=== PATIENT | female | born 1965 | race Caucasian/White ===

== ENCOUNTER 2020-11-11 07:52 | Outpatient (RCR) | payer BC, SELFPAY | END 2020-11-30 15:35 | disposition home or self-care (01) | LOC: HO.WCC 07:52 | PROVIDERS: Visit Provider Physician Assistant | DX: L97.321 Non-pressure chronic ulcer of left ankle limited to breakdown of skin (principal); L97.211 Non-pressure chronic ulcer of right calf limited to breakdown of skin; I10 Essential (primary) hypertension; I73.9 Peripheral vascular disease, unspecified; I87.2 Venous insufficiency (chronic) (peripheral) | CPT/HCPCS: 99212; 99214 ==

== ENCOUNTER 2024-10-13 13:44 | Outpatient (REF) | payer BC, SELFPAY ==
--- NOTE | ~2024-10-13 | US_ITS ---
Procedure: Endovascular ablation of the left anterior accessory saphenous vein with STS HISTORY: Varicose veins INDICATIONS: Symptomatic varicose veins of left lower extremity. Symptoms include ulceration of left lower extremity PROCEDURE/FINDINGS: Informed consent was obtained following a discussion of the risks and benefits of the procedure with the patient. The patient was placed supine on the ultrasound procedure table. Preliminary ultrasound demonstrates a dilated refluxing left anterior accessory saphenous vein.A site was marked on the left anterolateral leg . The left leg was sterilely prepped and draped. Under direct ultrasound guidance with permanent recordings, a 23-gauge butterfly needle was used to access the left anterior accessory saphenous vein. At this time, the STS solution was mixed utilizing the Tessari method of a 1:4 ratio with room air. During administration, manual dispersion of the injectate was performed with continuous compression of the junction. The delivery device was removed and hemostasis was achieved with manual compression. Postprocedure ultrasound demonstrates successful occlusion of the treated vein with widely patent and compressible saphenofemoral junction. Patient tolerated the procedure well without immediate complication. US/US guide needle placement IMPRESSION: Successful endovenous ablation of the left anterior accessory saphenous vein. Follow-up ultrasound in 5-7 days This procedure was performed by Rad Rodriguez NP and supervised by Antelmo Bermudez MD. Electronically signed by: Brett Bermudez MD 10/21/2024 05:51 PM EDT
--- NOTE | ~2024-10-13 | US_ITS ---
Procedure: Endovascular ablation of the left anterior accessory saphenous vein with STS HISTORY: Varicose veins INDICATIONS: Symptomatic varicose veins of left lower extremity. Symptoms include ulceration of left lower extremity PROCEDURE/FINDINGS: Informed consent was obtained following a discussion of the risks and benefits of the procedure with the patient. The patient was placed supine on the ultrasound procedure table. Preliminary ultrasound demonstrates a dilated refluxing left anterior accessory saphenous vein.A site was marked on the left anterolateral leg . The left leg was sterilely prepped and draped. Under direct ultrasound guidance with permanent recordings, a 23-gauge butterfly needle was used to access the left anterior accessory saphenous vein. At this time, the STS solution was mixed utilizing the Tessari method of a 1:4 ratio with room air. During administration, manual dispersion of the injectate was performed with continuous compression of the junction. The delivery device was removed and hemostasis was achieved with manual compression. Postprocedure ultrasound demonstrates successful occlusion of the treated vein with widely patent and compressible saphenofemoral junction. Patient tolerated the procedure well without immediate complication. US/US Vein Inj Sclerosant Single IMPRESSION: Successful endovenous ablation of the left anterior accessory saphenous vein. Follow-up ultrasound in 5-7 days This procedure was performed by Rad Rodriguez NP and supervised by Antelmo Bermudez MD. Electronically signed by: Brett Bermudez MD 10/21/2024 05:51 PM EDT
--- OUTSIDE RECORDS SUMMARY | 2024-10-13 14:30 | XMS_ITS | Encounter Summary ---
Author Organization [facility] Address [address] [address] Phone Care Team Providers Care Sports Management Professor Name Role Phone Eris Noel MD Primary Care Provider [phone] Eris Noel MD Unavailable Encounter Details Date Type Department Care Team (Late st Contact Info) Description 09/29/2024 Ancillary Orders Virtual Department [address] [place] [address] Eris Noel MD [address] [place] [address] [email or web address] Abnormal mammogram (Primary Dx) Social History Tobacco Use Types Packs/Day Years Used Date Smoking Tobacco: Never Smokeless Tobacco: Never Alcohol Use Standard Drinks/Week Comments Not Currently 0 (1 standard drink = 0.6 oz pur e alcohol) Child or Family Care Answer Date Record ed Do you have problems with on e of the following making it difficult for you to work, study, or receive health care? No 02/25/2024 Education Answer Date Recorded Are you interested in help w ith more adult education (for example, completing high school, GED, job training, learning the [place] language, technical skills, or developing parenting skills)? No 02/25/2024 Are you concerned about learning? Not on file 02/25/2024 No 02/25/2024 Yes 02/25/2024 Food Answer Date Recorded Within the past 6 months we worried whether our food would run out before we got money to buy more. Never True 02/25/2024 Within the past 6 months the food we bought just didn't last and we didn't have enough money to get more. Never True Residential Stability Answer Date Recor ded What is your housing situation today? I have [employer]ri [employer] 02/25/2024 How many times have you move d in the past 12 months? Zero (I did not move) 02/25/2024 Paying for Meds Answer Date Recorded Do you have trouble paying for medicines? No 02/25/2024 Paying Utility Bills Answer Date Record ed Do you have trouble paying your heating or elect ricity bill? No 02/25/2024 Transportation Answer Date Recorded Has the lack of transportati on kept you from medical appointments or from getting medications? No 02/25/2024 Unemployment Answer Date Recorded Are you currently unemployed or working on a part-time or temporary basis, and looking for work? No 10/18/2020 Digital Access Answer Date Recorded No 02/25/2024 Yes 02/25/2024 Do you have reliable internet access at home? Ye s 02/25/2024 Do you have a device (e.g., phone, tablet, computer) with a working camera? Yes 02/25/2024 Intimate Partner Violence Answer Date R ecorded Denied Basic Needs Not on file 02/25/2024 In the past 12 months have y ou been in a relationship with a person who hurts, threatens, or tries to control you? No 02/25/2024 Worried food would run out Not on file 02/24 In the past 12 months have y ou been in a relationship with a person who hurts, threatens, or tries to control you? No 02/25/2024 Comments No Sex and Gender Information Value Date Recorded Sex Assigned at Female 09/15/2020 5:09 PM EDT Legal Sex Female 9:40 PM EDT Gender Identity Female 09/15/2020 5:09 PM EDT Sexual Orientation Not on file documented as of this encounter Plan of Treatment Upcoming Encounters Date Type Department Care Team (Late st Contact Info) Description 10/21/2024 3:45 PM EDT Appointment [address] [address] Eris Noel MD [address] [place] [address] 2024 2:30 PM EDT Office Visit [facility] Internal Medicine [address] [place] [address] Eris Noel MD [address] [place], [place] [id number] Scheduled Orders Name Type Priority Associated Diagnoses Orde r Schedule Mammogram Diagnostic Call Back (Left) Imaging Routine Abnormal mammogram 1 Occurrences starting 09/29/2024 until 12/30/2024 documented as of this encounter Visit Diagnoses Diagnosis Abnormal mammogram- Primary Abnormal mammogram, unspecified documented in this encounter Additional Health Concerns Assessment Noted Time PHQ-2 Depression Total Score: 0 02/25/20 3:10 PM EST documented as of this encounter Care Teams Sports Management Professor Relationship Specialty Start Date End Date Eris Noel MD [address] [place] [id number] PCP - General Internal Medicine 10/18/20 Eris Noel MD [address] [place] [phone] Insurance Assigned Provider 06/22/23 documented as of this encounter Additional Source Comments The information contained in this document represents components of the legal health record. It is not the complete legal health record.[facility]
--- OUTSIDE RECORDS SUMMARY | 2024-10-13 14:30 | XMS_ITS | Patient Health Record ---
Author Organization [facility] Address [address] [facility] [address] [place] [address] Care Team Providers Care Grinder Brake Lining Name Role Phone Sadie JHA, Eris Primary Care Provider UnavailMartir Mayes Unavailable [phone] Tommie Bermudez MD Unavailable Unavailable Roger Pham Unavailable [phone] Allergies Allergen (clinical drug ingredient) Drug/Non Drug Allergy documented on EMR Reaction Allergy Type Onset Date Status mupirocin Mupirocin Unknown Drug Allergy Active doxycycline Doxycycline Unknown Drug Allergy Act leatha hydrochlorothiazide Hydrochlorothiazide Unknown Drug Aller gy Active Latex Latex Unknown Allergy Active Reason For Referral No Information Medications Medication SIG (Take, Route, Frequency, Duration) Notes Start Date End Date Status Tylenol Extra Strength 500 MG 1 tablet as needed Orally every 6 hrs Active Compression Bandages - as directed Active Metoprolol Succinate 25 MG 1 capsule Ora lly Once a day Active Claritin 10 MG 1 tablet Orally Once a day Active Dakins (1/4 strength) 0.125 % 1 application Externally Once a day; Duration: 30 days Not-Taking Spironolactone 100 MG 1 tablet Orally On ce a day Active Loratadine 10 MG 1 tablet Orally Once a day Not-Taking Mupirocin 2 % 1 application Externally Twice a day Not-Takin g Problems Problem Type SNOMED Code ICD Code Onset Dates Problem Status W/U Status Risk Notes Problem Disorder of arteries and arterioles, 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) Active confirmed Problem Venous ulcer of lower extremity due to chronic peripheral venous hypertension (482777633021451) Chronic venous hypertension (idiopathic) with ulcer of left lower extremity (I87.312) Active confirmed Problem Lymphedema (083251736) Lymphedema, not elsewhere classified (I89.0) Active confirmed Problem 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) Active confirmed Problem Venous insufficiency of leg (disorder) (804072148) Venous insufficiency (I87.2) Active confirmed Problem Arthritis (4123492) Arthritis (M19.90) Active confirmed Problem Hypertension (03093071) Hypertension (I10) Active confirmed Problem Hyperlipidemia (64553994) Hyperlipidemia (E78.5) Active confirmed Problem Anemia (430132954) Anemia (D64.9) Active confirmed Problem Stasis dermatitis (disorder) (48214406) Venous stasis dermatitis (I87.2) Active confirmed Vital Signs Heart Rate 73 /min 10/06/2024 Weight per magi ent report. Unable to stand on scale Temperature 97.3 degrees Fahrenheit 10/06/2024 Weig ht per patient report. Unable to stand on scale Respiratory Rate 16 /min 10/06/2024 Weight per patient report. Unable to stand on scale Height-cm 177.8 cm 10/06/2024 Weight per magi ent report. Unable to stand on scale Oximetry 97 % 10/06/2024 Weight per magi ent report. Unable to stand on scale Blood pressure diastolic 82 mm Hg 10/06/2024 Austyn ght per patient report. Unable to stand on scale Weight-kg 133.81 kg 10/06/2024 Weight per magi ent report. Unable to stand on scale Height 70 in 10/06/2024 Weight per magi ent report. Unable to stand on scale Blood pressure systolic 162 mm Hg 10/06/2024 Weig ht per patient report. Unable to stand on scale Weight 295 lbs 10/06/2024 Weight per magi ent report. Unable to stand on scale BMI 42.32 kg/m2 10/06/2024 Weight per magi ent report. Unable to stand on scale Encounters Encounter Location Date Provider Diagnosis [facility] [address] [address] 07/21/2024 Martir Johnson Chronic venous hypertension (idiopathic) with ulcer of left lower extremity I87.312 ; Non-pressure chronic ulcer of unspecified part of left lower leg with unspecified severity L97.929 and Lymphedema, not elsewhere classified I89.0 [facility] [address] [facility] [address] [place] [address] 07/28/2024 Martir Johnson Chronic venous hypertension (idiopathic) with ulcer of left lower extremity I87.312 ; Non-pressure chronic ulcer of unspecified part of left lower leg with unspecified severity L97.929 and Lymphedema, not elsewhere classified I89.0 [facility] [address] 08/04/2024 Martir Johnson Chronic venous hypertension (idiopathic) with ulcer of left lower extremity I87.312 ; Non-pressure chronic ulcer of unspecified part of left lower leg with unspecified severity L97.929 and Lymphedema, not elsewhere classified I89.0 [facility] [address] [address] 08/11/2024 Martir Johnson Chronic venous hypertension (idiopathic) with ulcer of left lower extremity I87.312 ; Non-pressure chronic ulcer of unspecified part of left lower leg with unspecified severity L97.929 and Lymphedema, not elsewhere classified I89.0 [facility] [address] [address] 08/18/2024 Martir Johnson Chronic venous hypertension (idiopathic) with ulcer of left lower extremity I87.312 ; Non-pressure chronic ulcer of unspecified part of left lower leg with unspecified severity L97.929 and Lymphedema, not elsewhere classified I89.0 [facility] [address] 08/25/2024 Martir Johnson Chronic venous hypertension (idiopathic) with ulcer of left lower extremity I87.312 ; Lymphedema, not elsewhere classified I89.0 ; Non-pressure chronic ulcer of other part of left lower leg with fat layer exposed L97.822 and Disorder of arteries and arterioles, 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 [facility] [address] 09/08/2024 Martir Johnson Chronic venous hypertension (idiopathic) with ulcer of left lower extremity I87.312 ; Lymphedema, not elsewhere classified I89.0 ; Non-pressure chronic ulcer of other part of left lower leg with fat layer exposed L97.822 and Disorder of arteries and arterioles, 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 [facility] [address] [address] 09/15/2024 Martir Johnson Chronic venous hypertension (idiopathic) with ulcer of left lower extremity I87.312 ; Lymphedema, not elsewhere classified I89.0 ; Non-pressure chronic ulcer of other part of left lower leg with fat layer exposed L97.822 and Disorder of arteries and arterioles, 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 [facility] [address] [address] 09/22/2024 Martir Johnson Chronic venous hypertension (idiopathic) with ulcer of left lower extremity I87.312 ; Lymphedema, not elsewhere classified I89.0 ; Non-pressure chronic ulcer of other part of left lower leg with fat layer exposed L97.822 and Disorder of arteries and arterioles, 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 [facility] [address] [address] 09/29/2024 Martir Johnson Chronic venous hypertension (idiopathic) with ulcer of left lower extremity I87.312 ; Lymphedema, not elsewhere classified I89.0 ; Non-pressure chronic ulcer of other part of left lower leg with fat layer exposed L97.822 and Disorder of arteries and arterioles, 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 [facility] [address] [address] 10/06/2024 Michaelmook Pinalos Chronic venous hypertension (idiopathic) with ulcer of left lower extremity I87.312 ; Non-pressure chronic ulcer of other part of left lower leg with fat layer exposed L97.822 ; Venous stasis dermatitis I87.2 and Disorder of arteries and arterioles, 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 [facility] [address] [address] 07/16/2024 Martir Johnson [facility] [address] [place] [address] 07/21/2024 Martir Johnson [facility] [address] [place] [address] 07/23/2024 Martir Johnson [facility] [address] [address] 07/27/2024 Martir Johnson Assessments Encounter Date Diagnosis (ICD Code) Assessment Notes Treatment Notes Treatment Clinical Notes Section Notes 07/21/2024 Chronic venous hypertension (idiopathic) with ulcer of left lower extremity (ICD-10 - I87.312) 07/21/2024 Non-pressure chronic ulcer of unspecified part of left lower leg with unspecified severity (ICD-10 - L97.929) 07/28/2024 Chronic venous hypertension (idiopathic) with ulcer of left lower extremity (ICD-10 - I87.312) 07/28/24 ok to DC dakins as she has not yet picked up and is being started on cipro today for 10 days. 08/04/2024 Chronic venous hypertension (idiopathic) with ulcer of left lower extremity (ICD-10 - I87.312) 07/28/24 ok to DC dakins as she has not yet picked up and is being started on cipro today for 10 days. 08/11/2024 Chronic venous hypertension (idiopathic) with ulcer of left lower extremity (ICD-10 - I87.312) 07/28/24 ok to DC dakins as she has not yet picked up and is being started on cipro today for 10 days. 08/18/2024 Chronic venous hypertension (idiopathic) with ulcer of left lower extremity (ICD-10 - I87.312) 07/28/24 ok to DC dakins as she has not yet picked up and is being started on cipro today for 10 days. 08/25/2024 Chronic venous hypertension (idiopathic) with ulcer of left lower extremity (ICD-10 - I87.312) 07/28/24 ok to DC dakins as she has not yet picked up and is being started on cipro today for 10 days. -completed the above antibiotic course- 08/25/2024 Lymphedema, not elsewhere classified (ICD-10 - I89.0) 09/08/2024 Chronic venous hypertension (idiopathic) with ulcer of left lower extremity (ICD-10 - I87.312) 07/28/24 ok to DC dakins as she has not yet picked up and is being started on cipro today for 10 days. -completed the above antibiotic course- 09/15/2024 Chronic venous hypertension (idiopathic) with ulcer of left lower extremity (ICD-10 - I87.312) 09/22/2024 Chronic venous hypertension (idiopathic) with ulcer of left lower extremity (ICD-10 - I87.312) 09/29/2024 Chronic venous hypertension (idiopathic) with ulcer of left lower extremity (ICD-10 - I87.312) 10/06/2024 Chronic venous hypertension (idiopathic) with ulcer of left lower extremity (ICD-10 - I87.312) 10/06/2024 Non-pressure chronic ulcer of other part of left lower leg with fat layer exposed (ICD-10 - L97.822) 10/06/2024 Venous stasis dermatitis (ICD-10 - I87.2) 08/18/2024 Non-pressure chronic ulcer of unspecified part of left lower leg with unspecified severity (ICD-10 - L97.929) 08/11/2024 Non-pressure chronic ulcer of unspecified part of left lower leg with unspecified severity (ICD-10 - L97.929) 09/29/2024 Lymphedema, not elsewhere classified (ICD-10 - I89.0) 09/22/2024 Lymphedema, not elsewhere classified (ICD-10 - I89.0) 09/15/2024 Lymphedema, not elsewhere classified (ICD-10 - I89.0) 09/08/2024 Lymphedema, not elsewhere classified (ICD-10 - I89.0) 08/25/2024 Non-pressure chronic ulcer of other part of left lower leg with fat layer exposed (ICD-10 - L97.822) 07/28/2024 Non-pressure chronic ulcer of unspecified part of left lower leg with unspecified severity (ICD-10 - L97.929) 08/04/2024 Non-pressure chronic ulcer of unspecified part of left lower leg with unspecified severity (ICD-10 - L97.929) 07/21/2024 Lymphedema, not elsewhere classified (ICD-10 - I89.0) 07/28/2024 Lymphedema, not elsewhere classified (ICD-10 - I89.0) 08/04/2024 Lymphedema, not elsewhere classified (ICD-10 - I89.0) 08/18/2024 Lymphedema, not elsewhere classified (ICD-10 - I89.0) 08/11/2024 Lymphedema, not elsewhere classified (ICD-10 - I89.0) 09/08/2024 Non-pressure chronic ulcer of other part of left lower leg with fat layer exposed (ICD-10 - L97.822) 09/15/2024 Non-pressure chronic ulcer of other part of left lower leg with fat layer exposed (ICD-10 - L97.822) 09/22/2024 Non-pressure chronic ulcer of other part of left lower leg with fat layer exposed (ICD-10 - L97.822) 09/29/2024 Non-pressure chronic ulcer of other part of left lower leg with fat layer exposed (ICD-10 - L97.822) 10/06/2024 Disorder of arteries and arterioles, unspecified (ICD-10 - I77.9) 08/25/2024 Disorder of arteries and arterioles, unspecified (ICD-10 - I77.9) 09/29/2024 Disorder of arteries and arterioles, unspecified (ICD-10 - I77.9) 09/22/2024 Disorder of arteries and arterioles, unspecified (ICD-10 - I77.9) 09/15/2024 Disorder of arteries and arterioles, unspecified (ICD-10 - I77.9) 09/08/2024 Disorder of arteries and arterioles, unspecified (ICD-10 - I77.9) 07/21/2024 Amanda Sanders is a 58-year-old female that is a returning patient that presents today for initial evaluation and treatment of wound to left anterior lower leg Past medical history is significant for anemia, cellulitis, HTN, HLD, venous stasis dermatitis, venous insufficiency, obese, arthritis Marilyn is known for having chronic wounds. She reports the wound started in June and that she had endovascular on 07/14/24 for venous reflux and on 06/05/24 she reports JEN normal. She has three days left of Keflex that was prescribed for 10 days. She reports use of juxtalights bilaterally. She was using zinc and dry gauze on her wound for treatment.On assessment today, Marilyn is noted to be afebrile and other VS were within normal limits. The patient denies pain or discomfort related to wound. We removed dressings, with suggestive s/s of an underlying infectious process. There was foul odor noted. There is erythema noted to surround portion of wound with greenish colored discharge The left lower leg wound was noted with significant erythema to the surround tissue of the wound. There is moist eschar throughout the wound bed with slough as well. She had significant epibole as well to periwound. There was trace edema noted, with minimal hair distribution and varicosities to her leg that is consistent with vascular disease. After examination, I discussed the indication of debridement and they were agreeable. I then performed debridement to remove devitalized tissues as outlined. She tolerated procedure well. The wound site were then cleansed with Dakin's solution and thereafter, we applied Aquacel AG, onto the wound sites and zinc to carolina wound areas. The sites were then covered with a dry dressing. Patient was educated on elevating their legs and protect wound site continue to reposition and off load. Marilyn will be performing the above dressings independentlywound culture obtained at today's visit to ensure current antibiotic regimen covers bacterial load and Dakin's 1/4 strength initiated as a 15-min soak with dressing changesoffice will call and try to get most recent ABIS/S of infection reviewed and when to go to EDPatient will have FU in one week A total of 40 minutes was spent on this visit (face to face and non face to face) documenting HPI and performing physical exam, reviewing previous notes and testing, reviewing and adjusting treatment plan, counseling the patient on treatment choices, disease process, expected outcomes, and documenting the findings in the note. I, Martir Johnson, MSN, PATTERN MAKER, INSIDE SALES TERRITORY MANAGER-C, examined, evaluated, and treated the patient. Dr. Antelmo Guerra was available for any questions or concerns that I may have had. I, Kwame Guerra MD confirm that Martir Johnson, MSN, PATTERN MAKER, INSIDE SALES TERRITORY MANAGER-C understands and adheres to the guidelines of the established clinical protocols in the office. I confirm the above care provided was rendered under my general supervision as initially planned and subsequently discussed and supervised by me. 07/28/2024 Other On assessment today, Marilyn is noted to be afebrile and other VS were within normal limits. The patient denies pain or discomfort related to wound or compression. We removed dressings, and I examined her wound with no suggestive s/s of an underlying infectious process. There was no foul odor noted. The left lower anterior leg, lympphedema wound is noted with significant improvement at todays visit based on assessment and measurments from last visit. The wound bed is noted with granular tissue and a decrease in the overlying slough.There is no moist eschar today. The periwound is noted with epibole, however has been reduced significantly since last visit.. After examination, I discussed the indication of debridement and she was agreeable. I then performed debridement to remove devitalized tissues as outlined above. She tolerated procedure well. The wound site were then cleansed with saline and thereafter, we applied Aquacel AG, onto the wound sites and zinc to carolina wound areas. The sites were then covered with a dry dressing. Patient was educated on elevating their legs and protect wound site continue to reposition and off load. Mariyln will be performing the above dressings independently I recommended changing from HFB classic to aquacel due to decrease in drainage. 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 continue with juxtalite and tubi for compressionS/S of infection reviewed and when to go to ED encouraged to call wound clinic with questions or concernsPatient will have FU in one week I, Martir Johnson, MSN, PATTERN MAKER, INSIDE SALES TERRITORY MANAGER-C, examined, evaluated, and treated the patient. Dr. Antelmo Guerra was available for any questions or concerns that I may have had. I, Kwame Guerra MD confirm that Martir Johnson, MSN, PATTERN MAKER, INSIDE SALES TERRITORY MANAGER-C understands and adheres to the guidelines of the established clinical protocols in the office. I confirm the above care provided was rendered under my general supervision as initially planned and subsequently discussed and supervised by me. 08/04/2024 Other On assessment today, Marilyn is noted to be afebrile and other VS were within normal limits. The patient denies pain or discomfort related to wound or compression. We removed dressings, and I examined her wound with no suggestive s/s of an underlying infectious process. There was no foul odor noted. The left lower anterior leg, lympphedema wound is noted with improvement at todays visit based on assessment and measurments from last visit. The wound bed is noted with granular tissue and a decrease in the overlying slough. However there is ne eschar at the base of the wound today. The periwound is noted with epibole. After examination, I discussed the indication of debridement and she was agreeable. I then performed debridement to remove devitalized tissues as outlined above. She tolerated procedure well. The wound site were then cleansed with saline and thereafter, we applied Aquacel AG, onto the wound sites and zinc to carolina wound areas. The sites were then covered with a dry dressing. Patient was educated on elevating their legs and protect wound site continue to reposition and off load. Marilyn will be performing the above dressings independently continue with aquacel complete the last 2 days of antibiotics continue with juxtalite and tubi for compressionS/S of infection reviewed and when to go to ED encouraged to call wound clinic with questions or concernsPatient will have FU in one week I, Martir Johnson, MSN, PATTERN MAKER, INSIDE SALES TERRITORY MANAGER-C, examined, evaluated, and treated the patient. Dr. Antelmo Guerra was available for any questions or concerns that I may have had. I, Kwame Guerra MD confirm that Martir Johnson, MSN, PATTERN MAKER, INSIDE SALES TERRITORY MANAGER-C understands and adheres to the guidelines of the established clinical protocols in the office. I confirm the above care provided was rendered under my general supervision as initially planned and subsequently discussed and supervised by me. 08/11/2024 Other On assessment, Marilyn is noted to be afebrile and, allother VS were within normal limits. The patient denies pain / discomfort related to wound and/or compression. We removed dressings, and I examined her wound to left lower leg, with no overt s/s of suggestive underlying infectious process. There was no foul odor noted. The left lower anterior leg, lympphedema wound is noted with improvement today, based on assessment and measurments from last visit. The wound bed has granular tissue with scant overlying slough through out. The periwound is noted with coontinued epibole. slight heat rash to surround skin of wound After examination, I discussed the indication of debridement and she was agreeable. I then performed debridement to remove devitalized tissues as outlined above. She tolerated procedure well. The wound site were then cleansed with saline and thereafter, we applied Aquacel AG, onto the wound sites and zinc to carolina wound areas. The sites were then covered with a dry dressing. spread zinc to surrounding skin to aid with heat rash Patient was educated on elevating their legs and protect wound site continue to reposition and off load. Marilyn will be performing the above dressings independently continue with aquacel, however she ran out so staff will reach out to reorder for her again today FU with vascular on 08/12/24 continue with juxtalite and tubi for compressionS/S of infection reviewed and when to go to ED encouraged to call wound clinic with questions or concernsPatient will have FU in one week I, Martir Johnson, MSN, PATTERN MAKER, INSIDE SALES TERRITORY MANAGER-C, examined, evaluated, and treated the patient. Dr. Antelmo uGerra was available for any questions or concerns that I may have had. I, Kwame Guerra MD confirm that Martir Johnson, MSN, PATTERN MAKER, INSIDE SALES TERRITORY MANAGER-C understands and adheres to the guidelines of the established clinical protocols in the office. I confirm the above care provided was rendered under my general supervision as initially planned and subsequently discussed and supervised by me. 08/18/2024 Other On assessment, Marilyn is afebrile and, all other VS were within normal limits per patients baseline. Marilyn denies pain and discomfort related to her wound and/or compression. Nursing removed her dressing, and I examined her wound to left lower leg, with no s/s of suggestive underlying infectious process. There was no foul odor noted. Her left lower anterior leg, lymphedema wound is noted with improvement today, based on assessment and measurements from last visit. The wound bed has granular and hypergranulated tissue with scant overlying slough throughout. The periwound is noted with continued epibole. Slight rash to surround skin of wound she has a new wound to left leg medial aspect from scratching. The wound bed is noted with granular and hypergranulated tissue and periwound is noted with attached fibrinous rim. After examination, I discussed the indication of debridement and she was agreeable. I then performed debridement to remove devitalized tissues as outlined above. She tolerated procedure well. The wound site were then cleansed with saline and thereafter, nursing applied Aquacel AG, onto the wound sites and zinc to carolina wound areas. The sites were then covered with a dry dressing. Then zinc applied to surrounding skin to aid with heat rash Patient was educated on elevating their legs and protect wound site continue to reposition and off load. Marilyn continues to perform the above dressing changes independently. FU with vascular on 08/12/24, patient stated the left upper leg needs intervention. She is not able to recall exact intervention or date she will have procedure. Continue with juxtalite and tubi for compression S/S of infection reviewed and when to go to ED Patient will have FU in one week Martir Mejía, MSN, PATTERN MAKER, INSIDE SALES TERRITORY MANAGER-C, examined, evaluated, and treated the patient. Dr. Antelmo Guerra was available for any questions or concerns that I may have had. Kwame Mejía MD confirm that Roger Pham INSIDE SALES TERRITORY MANAGER-C understands and adheres to the guidelines of the established clinical protocols in the office. I confirm the above care provided was rendered under my general supervision as initially planned and subsequently discussed and supervised by me. 08/25/2024 Other On assessment, Marilyn is afebrile and, all other VS were within normal limits per patients baseline. Marilyn denies pain and discomfort related to her wound and/or compression. Nursing removed her dressings, and I examined her wound to left lower leg, with no s/s of suggestive underlying infectious process. There was no foul odor noted. Her left lower anterior leg, lymphedema wound is noted with improvement today, based on assessment and measurements from last visit. The wound bed has granular and hypergranulated tissue with scant overlying slough throughout. The periwound is noted with continued epibole. left leg medial aspect wound is noted today with improvement based on assessment and measurements from lasst visit. The wound bed is noted with granular and hypergranulated tissue and periwound is attached withfibrinous rim. Followed by tubi for compression and then her juxtalite After examination, I discussed the indication of debridement and she was agreeable. I then performed debridement to remove devitalized tissues as outlined above. She tolerated procedure well. The wound site were then cleansed with saline and thereafter, nursing applied xeroform, onto the wound sites and zinc to carolina wound areas. The sites were then covered with a dry dressing. Then zinc applied to surrounding skin to aid with rash Patient was educated on elevating their legs and protect wound site continue to reposition and off load. Marilyn continues to perform the above dressing changes independently. Continue with juxtalite and tubi without latex for compression S/S of infection reviewed and when to go to ED Patient will have FU in one week Martir Mejía, MSN, PATTERN MAKER, INSIDE SALES T[employer]ITORY MANAGER-C, examined, evaluated, and treated the patient. Dr. Antelmo Guerra was available for any questions or concerns that I may have had. I, Kwame Guerra MD confirm that Martir Johnson, MSN, PATTERN MAKER, INSIDE SALES TERRITORY MANAGER-C understands and adheres to the guidelines of the established clinical protocols in the office. I confirm the above care provided was rendered under my general supervision as initially planned and subsequently discussed and supervised by me. 09/08/2024 Other Today on assessment, Marilyn is afebrile and, all other VS were within normal limits per patients baseline. Marilyn denies pain and/or discomfort related to her wound and/or compression. Nursing removed her dressings, and I examined her wound to left lower leg, with no s/s of suggestive infectious process. There was no foul odor noted. resolved wounds to left foot and left medial leg as noted by 100% epithelialization exhisiting wounds to left lateral anteriior leg cluster of two has improved based on assessment and measurements from last visit. The wound bed is a little dry and dry slough noted as well as fibrinous rim new wound noted to left anterior lower leg and left medial lower leg, venous in origin. The wound bed is a little dry and dry slough noted as well as fibrinous rim After examination, I discussed the indication of debridement and she was agreeable. I then performed debridement to remove devitalized tissues as outlined above. She tolerated procedure well. The wound site were then cleansed with saline and thereafter, nursing applied xeroform, onto the wound sites and zinc to carolina wound areas. The sites were then covered with a dry dressing. Followed by tubi for compression and then her juxtalite Patient was educated on elevating their legs and protect wound site continue to reposition and off load. Elisabet continues to perform the above dressing changes independently. Continue with juxtalite and tubi without latex for compression S/S of infection reviewed and when to go to ED Patient will have FU in one week I, Martir Johnson, MSN, PATTERN MAKER, INSIDE SALES TERRITORY MANAGER-C, examined, evaluated, and treated the patient. Dr. Antelmo Guerra was available for any questions or concerns that I may have had. 09/15/2024 Other Today on assessment, Marilyn is afebrile and, all other VS were within normal limits per patients baseline. She denies pain or discomfort related to her wound and/or compression. Nursing removed her dressings, and I examined her wounds to left lower leg, with no s/s of suggestive infectious process. There was no foul odor noted. Left anterior lower leg wound has resolved as noted by 100% epithelialization left lateral lower leg wound has improved today's based on assessment and measurements from last visit. Last visit was a cluster of two, however no longer a cluster of wounds at today's visit. The wound bed has increased granular tissue and decreased overlying slough. The periwound is noted with fibernous rim and callous. After examination, I discussed the indication of debridement and she was agreeable. I then performed debridement to remove devitalized tissues as outlined above. She tolerated procedure well. The wound site were then cleansed with saline and thereafter, nursing applied Xeroform, onto the wound sites and zinc to carolina wound areas. The sites were then covered with a dry dressing. Followed by tubi for compression and then her juxtalite Patient was educated on elevating their legs and protect wound site continue to reposition and off load. continue with the above dressing orders daily. Continue with juxtalite and tubi without latex for compression as patient has latex allergy S/S of infection reviewed and when to go to ED continue with weekly wound care FU and call with questions or concerns, and please do not wait until appointment. I, Martir Johnson, MSN, PATTERN MAKER, [employer] SALES TERRITORY MANAGER-C, examined, evaluated, and treated the patient. Dr. Antelmo Guerra was available for any questions or concerns that I may have had. I, Kwame Guerra MD confirm that Martir Johnson, MSN, PATTERN MAKER, INSIDE SALES TERRITORY MANAGER-C understands and adheres to the guidelines of the established clinical protocols in the office. I confirm the above care provided was rendered under my general supervision as initially planned and subsequently discussed and supervised by me. 09/22/2024 Other Today on assessment, Marilyn is afebrile and, all other VS were within normal limits per patients baseline. She denies pain or discomfort related to her wound and/or compression. Nursing removed her dressings, and I examined her wounds to left lower leg on the lateral and medial aspect of leg. there was no s/s of suggestive infectious process, or foul odor noted. left lateral lower leg wound is noted with mproved based on assessment and measurements from last visit.The wound bed has granulare tissue throughout, and the periwound is attached with fibrinous rim the left medial lower leg is noted as stable today based on assessment and measurements at todays visit. The wound bed is granular wiht periwound attached with fibrinnous rim. After examination, I discussed the indication of debridement and she was agreeable. I then performed debridement to remove devitalized tissues as outlined above. She tolerated procedure well. The wound site were then cleansed with saline and thereafter, nursing applied Xeroform, onto the wound sites and zinc to carolina wound areas. The sites were then covered with a dry dressing. Followed by tubi for compression and then her juxtalite Patient was educated on elevating their legs and protect wound site continue to reposition and off load. continue with the above dressing orders daily. Continue with juxtalite and tubi without latex for compression as patient has latex allergy S/S of infection reviewed and when to go to ED she will have a vascular procedure performed on 10/13/24 continue with weekly wound care FU call with questions or concerns, and please do not wait until appointment. I, Martir Johnson, MSN, PATTERN MAKER, INSIDE SALES TERRITORY MANAGER-C, examined, evaluated, and treated the patient. Dr. Antelmo Guerra was available for any questions or concerns that I may have had. I, Kwame Guerra MD confirm that Martir Johnson, MSN, PATTERN MAKER, INSIDE SALES TERRITORY MANAGER-C understands and adheres to the guidelines of the established clinical protocols in the office. I confirm the above care provided was rendered under my general supervision as initially planned and subsequently discussed and supervised by me. 09/29/2024 Other Today on assessment, Marilyn is afebrile and, all other VS were within normal limits per patients baseline. She denies pain or discomfort related to her wound and/or compression. Nursing removed her dressings, and I examined her wounds to left lower leg on the lateral and medial aspect of leg. there was no s/s of suggestive infectious process, or foul odor noted. left lateral lower leg wound is stable with no significant changes today based on assessment and measurements from last visit.The wound bed has granulare tissue throughout, and the periwound is has a fibrinous rim the left medial lower leg has improved today based on assessment and measurements at todays visit. The wound bed is granular wiht periwound with fibrinnous rim. After examination, I discussed the indication of debridement and she was agreeable. I then performed debridement to remove devitalized tissues as outlined above. She tolerated procedure well. The wound site were then cleansed with saline and thereafter, nursing applied Xeroform, onto the wound sites and zinc to carolina wound areas. The sites were then covered with a dry dressing. Followed by tubi for compression and then her juxtalite Patient was educated on elevating their legs and protect wound site continue to reposition and off load. continue with the above dressing orders daily. Continue with juxtalite and tubi without latex for compression as patient has latex allergy S/S of infection reviewed and when to go to ED she will have a vascular procedure performed on 10/13/24 continue with weekly wound care FU and call with questions or concerns, and please do not wait until appointment. I, Martir Johnson, MSN, PATTERN MAKER, INSIDE SALES TERRITORY MANAGER-C, examined, evaluated, and treated the patient. Dr. Antelmo Guerra was available for any questions or concerns that I may have had. I, Kwame Guerra MD confirm that Martir Johnson MSN, PATTERN MAKER, INSIDE SALES TERRITORY MANAGER-C understands and adheres to the guidelines of the established clinical protocols in the office. I confirm the above care provided was rendered under my general supervision as initially planned and subsequently discussed and supervised by me. 10/06/2024 Other On exam, vital signs stable, afebrile, non-ill appearing. I removed the dressing and examined the ulcers located on the left lateral and left medial lower leg. She has surrounding dry scaly skin with burning sensation. The lateral leg wound is measuring larger and medial leg wound is approximately the same. There is slough within the wound bed. There is no surrounding erythema, no purulence, no odor. I discussed the indication for debridement and patient was agreeable to procedure. I performed debridement of the wounds as outlined above. Wounds were cleaned with Dakins, rinsed with saline and Xeroform was applied to the wound bed, zinc to periwound secured with dsd. The Juxta lites were reapplied. She tolerated the proccedure well. Marilyn presents today for follow up visit for treatment of venous ulcers. She is currently getting staged venous ablations, will have another ablation on 10/13. Recommend to continue with Xeroform to the wound bed to be changed daily. She can use OTC hydrocortisone to relieve the itching and burning sensation. Continue to use juxta lites for compression and encouraged leg elevation. She does not have any signs of infection today, I did review signs of infection and when to report. She will return in 1 week for a follow up visit. Providers 1st encounter: I spent 25 minutes of direct and indirect care of this patient reviewing records, gathering H&P, evaluation, formulating plan, education and documentation. I Roger JAMA, examined, evaluated and treated the patient. Dr. Antelmo Guerra was available for any question or concerns that I may have had. I, Kwame Gurera MD confirm that Roger JAMA understands and adheres to the guidelines of the established clinical protocols in the office. I confirm the above care provided was rendered under my general supervision as initially planned and subsequently discussed and supervised by me. Plan Of Treatment Next Appt Details Provider Name:Martir Johnson, 10/20/2024 01:00:00 PM, [address], [facility] [address], [place], [address], Insurance Providers Payer Name Payer Address Payer Phone Subscriber Number Group Number Insured Name Patient Relationship to Insured Coverage Start Date Coverage End Date 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
[2024-10-13] MEDS: Sodium Tetradecyl Sulfate 1% 2 ML VIAL 1 ML INTRAVARIC (15:26)
== END 2024-10-13 13:45 | disposition home or self-care (01) ==
LOC: HO.US 13:44
PROVIDERS: PCP Internal Medicine; Visit Provider Student in an Organized Health Care Education/Training Program
DX: I87.2 Venous insufficiency (chronic) (peripheral) (principal); I83.892 Varicose veins of left lower extremity with other complications
CPT/HCPCS: 36470; 49185; 76942

== ENCOUNTER → 2024-10-13 14:00 | Outpatient (BNV) | payer BC, SELFPAY | PROVIDERS: PCP Internal Medicine | DX: I83.12 Varicose veins of left lower extremity with inflammation (principal) | CPT/HCPCS: 36470; 76942 ==

== ENCOUNTER 2024-10-20 09:56 | Outpatient (REF) | payer BC, SELFPAY ==
--- NOTE | ~2024-10-20 | US_ITS ---
EXAMINATION: US TRIPLEX LOWER EXTREMITY, LEFT CLINICAL INFORMATION: Post Venaseal sclerotherapy 10/13/2024 COMPARISON: None available. TECHNIQUE: Color-flow triplex imaging with spectral analysis and compression Doppler were performed on the left lower extremity. FINDINGS: Respiratory variation, normal compression and augmented flow are noted throughout the left lower extremity. The visualized common femoral vein, superficial femoral vein, profunda femoral vein, popliteal vein and midcalf peroneal and posterior tibial venous segments show no evidence of deep venous thrombosis. Left Accessory saphenous vein varicose vein thrombus related to treatment is present and does not extend into the greater saphenous vein or common femoral vein. There is a left inguinal lymph node that measures 1.36 cm short axis, which is at the upper limits of normal for an inguinal lymph node. US/US venous duplex LE LT IMPRESSION: No evidence of deep venous thrombosis involving the left lower extremity. Thrombosed left ASV varicose vein related to sclerotherapy. Electronically signed by: Harris Heart MD 10/20/2024 10:49 AM EDT
--- OUTSIDE RECORDS SUMMARY | 2024-10-20 10:24 | XMS_ITS | Patient Health Record ---
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) Active confirmed Problem Lymphedema (053377256) Lymphedema, not elsewhere classified (I89.0) Active confirmed Problem 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) Active confirmed Problem Venous insufficiency of leg (disorder) (551775735) Venous insufficiency (I87.2) Active confirmed Problem Arthritis (2118454) Arthritis (M19.90) Active confirmed Problem Hypertension (80408232) Hypertension (I10) Active confirmed Problem Hyperlipidemia (46170175) Hyperlipidemia (E78.5) Active confirmed Problem Anemia (944504659) Anemia (D64.9) Active confirmed Problem Stasis dermatitis (disorder) (14589351) Venous stasis dermatitis (I87.2) Active confirmed Vital [...] scale Encounters Encounter Location Date Provider Diagnosis [facility] [address] [address] 07/21/2024 Martir Johnson Chronic venous hypertension (idiopathic) with ulcer of left lower extremity I87.312 ; Non-pressure chronic ulcer of unspecified part of left lower leg with unspecified severity L97.929 and Lymphedema, not elsewhere classified I89.0 [facility] [address] [facility] [address] [place] [address] 07/28/2024 Martir Johnson Chronic venous hypertension (idiopathic) with ulcer of left lower extremity I87.312 ; Non-pressure chronic ulcer of unspecified part of left lower leg with unspecified severity L97.929 and Lymphedema, not elsewhere classified I89.0 [facility] [address] 08/04/2024 Martir Johnson Chronic venous hypertension (idiopathic) with ulcer of left lower extremity I87.312 ; Non-pressure chronic ulcer of unspecified part of left lower leg with unspecified severity L97.929 and Lymphedema, not elsewhere classified I89.0 [facility] [address] [address] 08/11/2024 Martir Johnson Chronic venous hypertension (idiopathic) with ulcer of left lower extremity I87.312 ; Non-pressure chronic ulcer of unspecified part of left lower leg with unspecified severity L97.929 and Lymphedema, not elsewhere classified I89.0 [facility] [address] [address] 08/18/2024 Martir Johnson Chronic venous hypertension (idiopathic) with ulcer of left lower extremity I87.312 ; Non-pressure chronic ulcer of unspecified part of left lower leg with unspecified severity L97.929 and Lymphedema, not elsewhere classified I89.0 [facility] [address] 08/25/2024 Martir Johnson Chronic venous hypertension (idiopathic) with ulcer of left lower extremity I87.312 ; Lymphedema, not elsewhere classified I89.0 ; Non-pressure chronic ulcer of other part of left lower leg with fat layer exposed L97.822 and Disorder of arteries and arterioles, 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 [facility] [address] 09/08/2024 Martir Johnson Chronic venous hypertension (idiopathic) with ulcer of left lower extremity I87.312 ; Lymphedema, not elsewhere classified I89.0 ; Non-pressure chronic ulcer of other part of left lower leg with fat layer exposed L97.822 and Disorder of arteries and arterioles, 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 [facility] [address] [address] 09/15/2024 Martir Johnson Chronic venous hypertension (idiopathic) with ulcer of left lower extremity I87.312 ; Lymphedema, not elsewhere classified I89.0 ; Non-pressure chronic ulcer of other part of left lower leg with fat layer exposed L97.822 and Disorder of arteries and arterioles, 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 [facility] [address] [address] 09/22/2024 Martir Johnson Chronic venous hypertension (idiopathic) with ulcer of left lower extremity I87.312 ; Lymphedema, not elsewhere classified I89.0 ; Non-pressure chronic ulcer of other part of left lower leg with fat layer exposed L97.822 and Disorder of arteries and arterioles, 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 [facility] [address] [address] 09/29/2024 Martir Johnson Chronic venous hypertension (idiopathic) with ulcer of left lower extremity I87.312 ; Lymphedema, not elsewhere classified I89.0 ; Non-pressure chronic ulcer of other part of left lower leg with fat layer exposed L97.822 and Disorder of arteries and arterioles, 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 [facility] [address] [address] 10/06/2024 Michaelmook Pinalos Chronic venous hypertension (idiopathic) with ulcer of left lower extremity I87.312 ; Non-pressure chronic ulcer of other part of left lower leg with fat layer exposed L97.822 ; Venous stasis dermatitis I87.2 and Disorder of arteries and arterioles, 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 [facility] [address] [address] 07/16/2024 Martir Johnson [facility] [address] [place] [address] 07/21/2024 Martir Johnson [facility] [address] [place] [address] 07/23/2024 Martir Johnson [facility] [address] [address] 07/27/2024 Martir Johnson Assessments Encounter Date Diagnosis [...] in the note. I, Martir Johnson, MSN, PROCEDURES RN, UND[employer], examined, evaluated, and treated the patient. Dr. Antelmo Guerra was available for any questions or concerns that I may have had. I, Kwmae Guerra MD confirm that Martir Johnson, MSN, PROCEDURES RN, UND[employer] understands and adheres to the guidelines of [...] with wound culture back and going to diamond picker antibiotics today. continue with juxtalite and tubi for compressionS/S of infection reviewed and when to go to ED encouraged to call wound clinic with questions or concernsPatient will have FU in one week I, Martir Johnson, MSN, PROCEDURES RN, [employer], examined, evaluated, and treated the patient. Dr. Antelmo Guerra was available for any questions or concerns that I may have had. I, Kwame Guerra MD confirm that Martir Johnson, MSN, PROCEDURES RN, [employer] understands and adheres to the guidelines of [...] in one week I, Martir Johnson, MSN, PROCEDURES RN, [employer], examined, evaluated, and treated the patient. Dr. Antelmo Guerra was available for any questions or concerns that I may have had. I, Kwame Guerra MD confirm that Martir Johnson, MSN, PROCEDURES RN, [employer] understands and adheres to the guidelines of [...] in one week I, Martir Johnson, MSN, PROCEDURES RN, [employer], examined, evaluated, and treated the patient. Dr. Antelmo Guerra was available for any questions or concerns that I may have had. I, Kwame Guerra MD confirm that Martir Johnson, MSN, PROCEDURES RN, UND[employer] understands and adheres to the guidelines of [...] FU in one week Martir Mejía, MSN, PROCEDURES RN, UND[employer], examined, evaluated, and treated the patient. Dr. Antelmo Guerra was available for any questions or concerns that I may have had. Kwame Mejía MD confirm that Roger Pham [employer] understands and adheres to the guidelines of [...] FU in one week Martir Mejía, MSN, PROCEDURES RN, [employer], examined, evaluated, and treated the patient. Dr. Antelmo Guerra was available for any questions or concerns that I may have had. I, Kwame Guerra MD confirm that Martir Johnson, MSN, PROCEDURES RN, UND[employer] understands and adheres to the guidelines of [...] in one week I, Martir Johnson, MSN, PROCEDURES RN, [employer], examined, evaluated, and treated the patient. Dr. [...] wait until appointment. I, Martir Johnson, MSN, PROCEDURES RN, [employer], examined, evaluated, and treated the patient. Dr. Antelmo Guerra was available for any questions or concerns that I may have had. I, Kwame Guerra MD confirm that Martir Johnson, MSN, PROCEDURES RN, UND[employer] understands and adheres to the guidelines of [...] wait until appointment. I, Martir Johnson, MSN, PROCEDURES RN, UND[employer], examined, evaluated, and treated the patient. Dr. Antelmo Guerra was available for any questions or concerns that I may have had. I, Kwame Guerra MD confirm that Martir Johnson, MSN, PROCEDURES RN, UND[employer] understands and adheres to the guidelines of [...] wait until appointment. I, Martir Johnson, MSN, PROCEDURES RN, [employer], examined, evaluated, and treated the patient. Dr. Antelmo Guerra was available for any questions or concerns that I may have had. I, Kwame Guerra MD confirm that Martir Johnson MSN, PROCEDURES RN, UND[employer] understands and adheres to the guidelines of [...] had. I, Kwame Guerra MD confirm that Roger JAMA understands and adheres to the guidelines of the established clinical protocols in the office. I confirm the above care provided was rendered under my general supervision as initially planned and subsequently discussed and supervised by me. Plan Of Treatment Next Appt Details Provider Name:Martir Johnson, 10/20/2024 01:00:00 PM, [address], [facility] [address], [place], [address], Insurance Providers Payer Name Payer Address Payer Phone Subscriber Number Group Number Insured Name Patient Relationship to Insured Coverage Start Date Coverage End Date [facility] [address] [place], [place] [id number] Marilyn Harris Self - patient is the [...]
--- OUTSIDE RECORDS SUMMARY | 2024-10-20 10:24 | XMS_ITS | Encounter Summary ---
Author Organization [facility] Address [address] [address] Phone Care Team Providers Care Side Laster Name Role Phone Eris Noel MD Primary Care Provider [phone] Eris Noel MD Unavailable Encounter Details Date Type Department Care Team (Late st Contact Info) Description 09/29/2024 Ancillary Orders Virtual Department [address] [place] [address] Eris Noel MD [address] [place] [address] [email or web address] Abnormal mammogram (Primary Dx) Social History Tobacco [...] high school, GED, job training, learning the [place] language, technical skills, or developing parenting skills)? [...] Info) Description 10/21/2024 3:45 PM EDT Appointment [address] [address] Eris Noel MD [address] [place] [address] 2024 2:30 PM EDT Office Visit [facility] Internal Medicine [address] [place] [address] Eris Noel MD [address] [place], [place] [phone] Scheduled Orders Name Type Priority Associated Diagnoses Orde r Schedule Mammogram Diagnostic Call Back (Bilateral) Imaging Routine Abnormal mammogram 1 Occurrences starting 09/29/2024 until 12/30/2024 documented as of this encounter Visit Diagnoses Diagnosis Abnormal mammogram- Primary Abnormal mammogram, unspecified documented in this encounter Additional Health Concerns Assessment Noted Time PHQ-2 Depression Total Score: 0 02/25/20 3:10 PM EST documented as of this encounter Care Teams Side Laster Relationship Specialty Start Date End Date Eris Noel MD [address] [place] [phone] PCP - General Internal Medicine 10/18/20 Eris Noel MD [address] [place] [phone] Insurance Assigned Provider 06/22/23 documented as of this encounter Additional Source Comments The information contained in this document represents components of the legal health record. It is not the complete legal health record.[facility]
== END 2024-10-20 09:57 | disposition home or self-care (01) ==
LOC: HO.US 09:56
PROVIDERS: PCP Internal Medicine; Visit Provider Student in an Organized Health Care Education/Training Program
DX: I87.2 Venous insufficiency (chronic) (peripheral) (principal)
CPT/HCPCS: 93971

== ENCOUNTER → 2024-10-20 10:13 | Outpatient (BNV) | payer BC, SELFPAY | PROVIDERS: PCP Internal Medicine; Visit Provider Radiology Diagnostic Radiology | DX: I80.02 Phlebitis and thrombophlebitis of superficial vessels of left lower extremity (principal) | CPT/HCPCS: 93971 ==